=== PATIENT | female | born 1980 | race Caucasian/White ===

== ENCOUNTER 2019-02-27 01:47 | Emergency (ER) | payer BC ==
[2019-02-27 02:42] LABS: BASOPHIL % 0.4 % (0.0-0.4); Basophil (Absolute #) 0.04 (0-0.4); Eosinophil % 2.8 % (0.00-5.0); Eosinophil (Absolute #) 0.26 (0-0.5); Granulocyte Absolute (ANC) 4.67 (1.4-6.9); Granulocytes % 49.8 % (36.0-66.0); Hematocrit 38.7 % (35-47); Hemoglobin 12.5 gm/dl (12.0-16.0); Lymphocyte (Absolute #) 3.77 (1.0-4.6); Lymphocytes % 40.2 % (24.0-44.0); Mean Cell Volume 96.8 fl (78-100); Mean Corpuscular Hgb Concent. 32.3 g/dl (32-36); Mean Platelet Volume 11.9 fl (6-9.5); Monocyte (Absolute #) 0.64 (0.0-1.3); Monocytes % 6.8 % (0.0-12.0); Platelet Count 211 K/mm3 (150-450); Red Cell Distribution Width 12.1 % (11.5-14.0); White Blood Count 9.4 K/mm3 (4.0-10.5)
[2019-02-27] MEDS ORDERED: Sodium Chloride 0.9% 1000 ML 1,000 ML ONE (02:42)
[2019-02-27 02:43] LABS: Mean Corpuscular Hemoglobin 31.2 pg (26-32)
[2019-02-27 02:45] VITALS: O2SAT 96
[2019-02-27] MEDS ORDERED: Sodium Chloride 0.9% 1000 ML 1,000 ML IV SCH (02:45)
[2019-02-27 02:46] LABS: ALBUMIN 4.3 g/dL (3.5-5.0); ALKALINE PHOSPHATASE 75 U/L (38-126); ANION GAP 12.3 MEQ/L (5-15); BLOOD UREA NITROGEN 20 mg/dL (7-17); CHLORIDE 104 mmol/L (98-107); Calcium 9.3 mg/dL (8.4-10.2); Carbon Dioxide 28 mmol/L (22-30); Creatinine 1 0.72 mg/dL (0.52-1.04); Glucose 102 mg/dL (74-106); SGOT/AST 40 U/L (14-36); SGPT/ALT 20 U/L (0-35); SODIUM 140 mmol/L (137-145); Total Protein 7.4 g/dL (6.3-8.2)
--- NOTE | 2019-02-27 03:15 | ERPHSYRPT ---
- History of Present Illness Time Seen by Provider: 02/27/19 03:04 Source: patient Exam Limitations: no limitations Patient Subjective Stated Complaint: Pt c/o intermittent cp x 1 week, pt reports hx of "a hole in her heart". Pt states a few hours ago started having severe left sided neck/head pain and dizziness upon standing. Triage Nursing Assessment: [place]/warm/dry, resp easy, a&ox4, steady gait, ekg done. no distress noted at this time. Physician History: 38 y/o white female presents with one week h/o cp, substernal shooting type pain with radiation up left jaw and into left shoulder this am. pt was also experiencing dizziness upon standing. pt has had similar sx several years ago. pt was found to be bradycardic. was observed in hospital and underwent cardiac evaluation. pt was discharged to home but never had a full completed cardiac eval as outpt. pt denies illicit drug use, denies new medications. Timing/Duration: week(s) (1), worse (today) Severity: mild Modifying Factors: Improves With: other (standing) Associated Symptoms: headaches, other (dizzines) Allergies/Adverse Reactions: No Known Drug Allergies Allergy (Unverified 02/27/19 01:53) Home Medications: Ergocalciferol (Vitamin D2) [Vitamin D] 1 cap PO DAILY 02/27/19 [History] Lysine 02/27/19 [History] Tumeric 02/27/19 [History] Hx Tetanus, Diphtheria Vaccination/Date Given: No Immunizations Up to Date: No - Review of Systems Constitutional: No Symptoms Eyes: No Symptoms Ears, Nose, & Throat: No Symptoms Respiratory: No Symptoms Cardiac: Chest Pain, Palpitations Abdominal/Gastrointestinal: No Symptoms Genitourinary Symptoms: No Symptoms Musculoskeletal: No Symptoms Skin: No Symptoms Neurological: Dizziness Psychological: No Symptoms Endocrine: No Symptoms Hematologic/Lymphatic: No Symptoms Immunological/Allergic: No Symptoms All Other Systems: Reviewed and Negative - Past Medical History Pertinent Past Medical History: Yes Neurological History: No Pertinent History ENT History: No Pertinent History Cardiac History: No Pertinent History, Other Respiratory History: No Pertinent History Endocrine Medical History: No Pertinent History Musculoskeletal History: No Pertinent History GI Medical History: No Pertinent History History: No Pertinent History Psycho-Social History: No Pertinent History Female Reproductive Disorders: No Pertinent History - Past Surgical History Past Surgical History: Yes Neuro Surgical History: No Pertinent History Cardiac: No Pertinent History Respiratory: No Pertinent History Gastrointestinal: No Pertinent History Genitourinary: No Pertinent History Musculoskeletal: Other Female Surgical History: Hysterectomy Other Surgical History: left ankle - Social History Smoking Status: Current every day smoker Exposure to second hand smoke: Yes Drug Use: none Patient Lives Alone: No - Female History Hx Last Menstrual Period: hysterectomy Hx Now: No - Nursing Vital Signs Nursing Vital Signs: Initial Vital Signs Temperature 98.7 F 02/27/19 01:57 Pulse Rate 63 02/27/19 01:57 Respiratory Rate 18 02/27/19 01:57 Blood Pressure 138/71 02/27/19 01:57 O2 Sat by Pulse Oximetry 97 02/27/19 01:57 Pain Scale Pain Intensity 6 - Physical Exam General Appearance: no apparent distress, alert, anxiety Eye Exam: PERRL/EOMI, eyes nml inspection Ears, Nose, Throat Exam: normal ENT inspection, moist mucous membranes Neck Exam: normal inspection, non-tender, supple, full range of motion Respiratory Exam: normal breath sounds, chest tenderness, lungs clear, airway intact, No respiratory distress Cardiovascular Exam: regular rate/rhythm, normal heart sounds, normal peripheral pulses Gastrointestinal/Abdomen Exam: soft, normal bowel sounds, No tenderness, No guarding Pelvic Exam: not done Rectal Exam: not done Back Exam: normal inspection, normal range of motion, No CVA tenderness, No vertebral tenderness Extremity Exam: normal inspection, normal range of motion, pelvis stable Neurologic Exam: alert, oriented x 3, cooperative, early breastfeeding care specialist II-XII nml as tested Skin Exam: normal color, warm, dry Lymphatic Exam: No adenopathy SpO2 Interpretation: normal SpO2: 96 O2 Delivery: Room Air - Course Nursing assessment & vital signs reviewed: Yes EKG Interpreted by Me: RATE (57), Sinus Rhythm, NORMAL AXIS, NORMAL INTERVALS, NORMAL QRS, Other (no comparison ekg) Ordered Tests: Active Orders 24 hr Category Date Time Status EKG-ER Only STAT Care 02/27/19 02:31 Active IV Insertion STAT Care 02/27/19 02:31 Active Orthostatic Vital Signs STAT Care 02/27/19 03:18 Active Pulse Oximetry (ED) STAT Care 02/27/19 02:31 Active CBC W DIFF Stat Lab 02/27/19 02:30 Completed CMP Stat Lab 02/27/19 02:30 Completed HCG,QUALITATIVE URINE Stat Lab 02/27/19 03:15 Completed TROPONIN Q3H Lab 02/27/19 02:30 Completed TROPONIN Q3H Lab 02/27/19 05:45 Ordered TROPONIN Q3H Lab 02/27/19 08:45 Ordered TROPONIN Q3H Lab 02/27/19 11:45 Ordered TROPONIN Q3H Lab 02/27/19 14:45 Ordered UA W/RFX UR CULTURE Stat Lab 02/27/19 03:15 Completed Urine Triage Profile Stat Lab 02/27/19 03:15 Completed Holter Monitor ONCE RT 02/27/19 03:18 Active Medication Summary Generic Name Dose Route Start Last Admin Trade Name Freq PRN Reason Stop Dose Admin Sodium Chloride 1,000 mls @ 100 mls/hr 02/27/19 02:45 02/27/19 02:43 Sodium Chloride 0.9% 1000 Ml IV 03/29/19 02:44 100 mls/hr .Q10H KATEY Administration Lab/Rad Data: Laboratory Result Diagrams 02/27/19 02:30 02/27/19 02:30 Laboratory Results 02/27/19 02/27/19 02/27/19 Range/Units 03:15 03:15 03:15 WBC (4.0-10.5) K/mm3 RBC (4.1-5.4) M/mm3 Hgb (12.0-16.0) gm/dl Hct (35-47) % MCV (78-100) fl MCH (26-32) pg MCHC (32-36) g/dl RDW (11.5-14.0) % Plt Count (150-450) K/mm3 MPV (6-9.5) fl Gran % (36.0-66.0) % Eos # (Auto) (0-0.5) Absolute Lymphs (auto) (1.0-4.6) Absolute Monos (auto) (0.0-1.3) Lymphocytes % (24.0-44.0) % Monocytes % (0.0-12.0) % Eosinophils % (0.00-5.0) % Basophils % (0.0-0.4) % Absolute Granulocytes (1.4-6.9) Basophils # (0-0.4) Sodium (137-145) mmol/L Potassium (3.5-5.1) mmol/L Chloride (98-107) mmol/L Carbon Dioxide (22-30) mmol/L Anion Gap (5-15) MEQ/L BUN (7-17) mg/dL Creatinine (0.52-1.04) mg/dL Estimated GFR ML/MIN Glucose (74-106) mg/dL Calcium (8.4-10.2) mg/dL Total Bilirubin (0.2-1.3) mg/dL AST (14-36) U/L ALT (0-35) U/L Alkaline Phosphatase (38-126) U/L Troponin I (0.000-0.034) ng/mL Serum Total Protein (6.3-8.2) g/dL Albumin (3.5-5.0) g/dL Urine Color YELLOW (YELLOW) Urine Appearance CLEAR (CLEAR) Urine pH 6.0 (5-6) Ur Specific [place] 1.017 (1.005-1.025) Urine Protein NEGATIVE (Negative) Urine Ketones NEGATIVE (NEGATIVE) Urine Blood NEGATIVE (0-5) Fahad/ul Urine Nitrite NEGATIVE (NEGATIVE) Urine Bilirubin NEGATIVE (NEGATIVE) Urine Urobilinogen 2 (0-1) mg/dL Ur Leukocyte Esterase NEGATIVE (NEGATIVE) Urine WBC (Auto) 0-2 (0-5) /HPF Urine RBC (Auto) NONE (0-2) /HPF U Epithel Cells (Auto) NONE (FEW) /HPF Urine Bacteria (Auto) NONE (NEGATIVE) /HPF Urine Culture Reflexed NO (NO) Urine Glucose NEGATIVE (NEGATIVE) mg/dL Urine HCG, Qual NEGATIVE (Negative) Urine Opiates Level NEGATIVE (NEGATIVE) Ur Methadone NEGATIVE (NEGATIVE) Urine Barbiturates NEGATIVE (NEGATIVE) Ur Phencyclidine (PCP) NEGATIVE (NEGATIVE) Urine Amphetamine NEGATIVE (NEGATIVE) U Benzodiazepine Level NEGATIVE (NEGATIVE) Urine Cocaine NEGATIVE (NEGATIVE) Urine Marijuana (THC) NEGATIVE (NEGATIVE) 02/27/19 02/27/19 02/27/19 Range/Units 02:30 02:30 02:30 WBC 9.4 (4.0-10.5) K/mm3 RBC 4.00 L (4.1-5.4) M/mm3 Hgb 12.5 (12.0-16.0) gm/dl Hct 38.7 (35-47) % MCV 96.8 (78-100) fl MCH 31.2 (26-32) pg MCHC 32.3 (32-36) g/dl RDW 12.1 (11.5-14.0) % Plt Count 211 (150-450) K/mm3 MPV 11.9 H (6-9.5) fl Gran % 49.8 (36.0-66.0) % Eos # (Auto) 0.26 (0-0.5) Absolute Lymphs (auto) 3.77 (1.0-4.6) Absolute Monos (auto) 0.64 (0.0-1.3) Lymphocytes % 40.2 (24.0-44.0) % Monocytes % 6.8 (0.0-12.0) % Eosinophils % 2.8 (0.00-5.0) % Basophils % 0.4 (0.0-0.4) % Absolute Granulocytes 4.67 (1.4-6.9) Basophils # 0.04 (0-0.4) Sodium 140 (137-145) mmol/L Potassium 4.0 (3.5-5.1) mmol/L Chloride 104 (98-107) mmol/L Carbon Dioxide 28 (22-30) mmol/L Anion Gap 12.3 (5-15) MEQ/L BUN 20 H (7-17) mg/dL Creatinine 0.72 (0.52-1.04) mg/dL Estimated GFR > 60.0 ML/MIN Glucose 102 (74-106) mg/dL Calcium 9.3 (8.4-10.2) mg/dL Total Bilirubin 0.40 (0.2-1.3) mg/dL AST 40 H (14-36) U/L ALT 20 (0-35) U/L Alkaline Phosphatase 75 (38-126) U/L Troponin I < 0.012 (0.000-0.034) ng/mL Serum Total Protein 7.4 (6.3-8.2) g/dL Albumin 4.3 (3.5-5.0) g/dL Urine Color (YELLOW) Urine Appearance (CLEAR) Urine pH (5-6) Ur Specific [place] (1.005-1.025) Urine Protein (Negative) Urine Ketones (NEGATIVE) Urine Blood (0-5) Fhaad/ul Urine Nitrite (NEGATIVE) Urine Bilirubin (NEGATIVE) Urine Urobilinogen (0-1) mg/dL Ur Leukocyte Esterase (NEGATIVE) Urine WBC (Auto) (0-5) /HPF Urine RBC (Auto) (0-2) /HPF U Epithel Cells (Auto) (FEW) /HPF Urine Bacteria (Auto) (NEGATIVE) /HPF Urine Culture Reflexed (NO) Urine Glucose (NEGATIVE) mg/dL Urine HCG, Qual (Negative) Urine Opiates Level (NEGATIVE) Ur Methadone (NEGATIVE) Urine Barbiturates (NEGATIVE) Ur Phencyclidine (PCP) (NEGATIVE) Urine Amphetamine (NEGATIVE) U Benzodiazepine Level (NEGATIVE) Urine Cocaine (NEGATIVE) Urine Marijuana (THC) (NEGATIVE) - Progress Progress: improved, re-examined Progress Note: 02/27/19 03:49 pt is not orthostatic based on orthostatic vital signs. Counseled pt/family regarding: lab results, diagnosis, need for follow-up - Departure Departure Disposition: Home Clinical Impression: Dizziness, Chest pain, Palpitations Condition: Stable Critical Care Time: No Referrals: MADI CHANDLER MD [Primary Care Provider] - Additional Instructions: wear holter monitor. follow up with primary doctor and rigging up worker for further management
[2019-02-27 03:34] LABS: Appearance CLEAR (CLEAR); Bilirubin NEGATIVE (NEGATIVE); Blood NEGATIVE Ery/ul (0-5); Glucose NEGATIVE (NEGATIVE); Ketones NEGATIVE (NEGATIVE); Leukocyte Esterase NEGATIVE (NEGATIVE); Nitrite NEGATIVE (NEGATIVE); Protein,Urine Dip NEGATIVE (Negative); Specific Gravity 1.017 (1.005-1.025); Urobilinogen 2 mg/dL (0-1); WBC 0-2 /HPF (0-5)
[2019-02-27 03:51] LABS: Amphetamine,Urine NEGATIVE (NEGATIVE); Barbiturate,Urine NEGATIVE (NEGATIVE); Benzodiazepine,Urine NEGATIVE (NEGATIVE); Cocaine,Urine NEGATIVE (NEGATIVE); Methadone,Urine NEGATIVE (NEGATIVE); Opiate,Urine NEGATIVE (NEGATIVE); PCP,Urine NEGATIVE (NEGATIVE); THC,Urine NEGATIVE (NEGATIVE)
[2019-02-27 04:04] VITALS: BP 102/64; PULSE 60
--- NOTE | 2019-03-03 13:47 | HOLTER ---
DATE OF PROCEDURE: 02/27/2019 PROCEDURE: Holter monitor report. REASON FOR EXAMINATION: Dizziness, chest pain. DESCRIPTION OF PROCEDURE: The patient was monitored using Holter monitor for about 24 hours and 4 minutes. The patient was in sinus rhythm throughout the recording with average rate of 61 beats/minute. The maximum rate was 138 beats/minute and the minimum rate was 42 beats/minute at 0300 hours. There is no evidence of any ventricular arrhythmia. There were 3 PAC's noted without evidence of any supraventricular tachyarrhythmia. Artifact was noted occasionally. IMPRESSION: 1) SINUS RHYTHM. 2) RARE PAC'S.
== END 2019-02-27 04:31 | disposition home or self-care (01) ==
LOC: ED 01:47
DX: R42 Dizziness and giddiness (principal); R07.9 Chest pain, unspecified; R00.2 Palpitations
CPT/HCPCS: 36000; 36415; 80053; 80307; 81001; 84484; 84703; 85025; 93005; 93225; 96360; 96361; 99284